=== PATIENT | male | born 2005 | race Caucasian/White ===

== ENCOUNTER 2025-03-24 13:51 | Observation (INO) | payer OTHER, SELFPAY ==
[2025-03-24] VITALS (13 sets, daily range): BP systolic 117–146; BP diastolic 63–91; PULSE 76–101; RESP 16; TEMP 36.3–36.9; O2SAT 97–100; BMI 24.8; BMI 25.0
--- NOTE | 2025-03-24 14:08 | EX.ED.DYSGE1 ---
HPI History of Present Illness Chief Complaint: Abd Pain PFSH PFSH Medical History no medical history Home Medications ?Medication ?Instructions ?Recorded ?Last Taken ?Type NK 03/24/25 Unknown History Allergy/AdvReac Type Severity Reaction Status Date / Time bacitracin (From Triple Allergy Intermediate Rash Verified 03/24/25 13:52 Antibiotic) neomycin (From Triple Allergy Intermediate Rash Verified 03/24/25 13:52 Antibiotic) polymyxin B (From Triple Allergy Intermediate Rash Verified 03/24/25 13:52 Antibiotic) Surgical History no surgical history Social History Smoking Status: Never smoker EXAM Physical Exam Const Vital Signs: 03/24/25 13:51 03/24/25 15:51 Temperature 97.3 F L 98.3 F Temperature Source Temporal Oral Pulse Rate 92 86 Respiratory Rate 16 16 Blood Pressure 137/91 H 131/77 H Blood Pressure Mean 106 95 Pulse Ox 100 100 Oxygen Delivery Method Room Air [facility] MDM Narrative Medical decision making narrative: HISTORY OF PRESENT ILLNESS: Chief complaint: [] [] REVIEW OF SYSTEMS: Pertinent positives: [] Pertinent negatives: [] PHYSICAL EXAM: Nursing triage notes reviewed, Vital signs reviewed Constitutional: please see mdm HENT: MMM Eyes: Pupils equal round and reactive to light, Extraocular muscles intact Neck: No stridor, no JVD, full neck ROM Lungs: Clear to auscultation, No wheezing or rales. No increased work of breathing, no conversational dyspnea, no accessory muscle use, no nasal flaring. No respiratory distress noted Heart: Regular rate and rhythm, No murmurs, No rubs and No gallops, 2+ distal pulses (radial, femoral, posterior tibial) in all extremities Abdomen: Soft, there is no tenderness, rigidity, rebound or guarding, no obvious peritoneal signs, no palpable pulsatile abdominal masses, no auscultated abdominal bruit : No CVAT Extremities: No edema Neuro: No new focal neurological deficits, cranial nerves II through XII intact, 5/5 strength in all present extremities. Intact sensation to light touch in all present extremities, 2+ reflexes bilateral patella tendons. Skin: No rash or lesions noted MEDICAL DECISION MAKING: Chief Complaint: please see HPI External records reviewed: No prior imaging studies Factors affecting care: none Social determinants of health: none History obtained from others: Parents Consults: General Surgery (Dr. Osman)?discussed he will evaluate the patient in the ED determine neck steps. MDM Narrative: Patient was initially hemodynamically stable, afebrile and nontoxic-appearing. Exam right lower quadrant TTP. No obvious peritoneal signs however. I considered the following differential diagnosis: AAA, small bowel obstruction, abdominal perforation, appendicitis, pancreatitis, hepatobiliary pathology (acute cholecystitis), mesenteric ischemia, pathology (ie nephrolithiasis, pyelonephritis). I obtained a broad lab and imaging workup to further determine if the patient was suffering from a life-threatening etiology. Initially resuscitated patient 1 L normal saline, gave 4 mg IV Zofran as well as 15 mg of IV Toradol ALL IMAGES (IF OBTAINED) HAVE BEEN PERSONALLY REVIEWED AND INTERPRETED BY MYSELF. CT scan of the abdomen pelvis was read and reviewed personally by myself showed evidence of small appendicolith as well as inflamed appendix consistent with acute appendicitis. Radiologist agrees to my interpretation. CBC with leukocytosis suggestive of systemic inflammation, no anemia or thrombocytopenia CMP without evidence of acute kidney injury, significant electrolyte abnormality, anion gap to suggest end organ hypo-perfusion, no evidence of metabolic acidosis with a normal bicarbonate, no evidence of hepatobiliary obstructive pathology. Given concern for acute appendicitis gave Zosyn. Kept patient n.p.o. and consulted general surgery. Awaiting general surgery's final recommendations. General surgery recommended admission to floor as he has another case that he needs to emergently operate on. Patient is admitted in stable condition. The patient and/or family, caregivers express understanding. The patient and/or family, caregivers agrees with the plan. Shared decision making: I will have a discussion with the patient and or visitors regarding risk/benefits of further testing or admission. They will be made aware of of the risk/benefits inherent in this decision they will be given the opportunity to voice understanding. Total critical care time today provided was at least 35 minutes. This excludes separately billable procedures. Critical care time (if documented) is secondary to the patient having high probability of clinically significant/life threatening deterioration in the patient's condition which required my urgent intervention. Impression: 1. Acute abdominal pain 2. Acute appendicitis Dispo: Admit to the OR versus surgical floor pending Dr. Osman final recommendations. Signed out to p.m. physician pending general surgery's final recs. This note was generated with [employer] dictation software. It may contain incorrect words, spelling, and punctuation that were not noted in review of the chart prior to signing. Lab Data Labs: Laboratory Results - last 24 hr 03/24/25 03/24/25 14:38 15:35 WBC 16.2 H RBC 5.42 Hgb 15.8 Hct 45.8 MCV 84.5 MCH 29.2 MCHC 34.5 RDW Std Deviation 37.5 RDW Coeff of Ruben 12.4 Plt Count 184 MPV 10.2 Immature Gran % (Auto) 0.400 Neut % (Auto) 91.1 H Lymph % (Auto) 3.4 L [place] % (Auto) 4.8 Eos % (Auto) 0.1 Baso % (Auto) 0.2 Absolute Neuts (auto) 14.7 H Absolute Lymphs (auto) 0.55 L Nucleated RBC % 0 Sodium 137 Potassium 3.3 Chloride 100 Carbon Dioxide 23.6 Anion Gap 14 BUN 21 H Creatinine 1.01 Estim Creat Clear Calc 119.46 Est GFR (MDRD) Non-Af 109 BUN/Creatinine Ratio 20.5 H Glucose 98 Calcium 9.5 Total Bilirubin 1.00 AST 27 ALT 32 Alkaline Phosphatase 85 Total Protein 7.3 Albumin 4.7 Globulin 2.6 Albumin/Globulin Ratio 1.8 Urine Color Straw Urine Clarity Clear Urine pH 6.5 Ur Specific [place] 1.010 Urine Protein 15 H Urine Glucose (UA) Normal Urine Ketones 150 A* Urine Occult Blood Negative Urine Nitrite Negative Urine Bilirubin Negative Urine Urobilinogen Normal Ur Leukocyte Esterase Negative Radiography Diagnostic Testing: Clinical Impression(s) from Imaging Studies Abdomen/Pelvis CT 03/24/25 14:09 IMPRESSION: Acute uncomplicated appendicitis. The findings and impression were called directly to Dr. Littlejohn at 3:22 p.m. Reading Location: [id number] Discharge Plan Triage Chief Complaint: Abd Pain ED Provider: Thee Littlejohn Dx/Rx/DC Orders Prescriptions: No Action NK Primary Care Provider: Care Physician,No Primary Referrals: Care Physician,No Primary [Primary Care Provider] - Print Language: Faroese
--- NOTE | 2025-03-24 14:09 | CT_ITS ---
PROCEDURE: ABDOMEN/PELVIS W IV CONT ONLY 03/24/2025 REASON FOR EXAM: RIGHT LOWER QUAD ABDOMINAL PAIN, RULE OUT APPENDIC TECHNIQUE: ABDOMEN/PELVIS W IV CONT ONLY Coronal and Sagittal reconstruction series were provided. CONTRAST: Isovue 370 VOLUME: 100 mL One or more dose reduction techniques were used (e.g., Automated exposure control, adjustment of the mA and/or kV according to patient size, use of iterative reconstruction technique. RADIATION DOSE SUMMARY: CTDlvol: 22 mGy DLP: 667 mGycm COMPARISON: None FINDINGS: Lung bases: Clear Liver: Normal Gallbladder: Normal Spleen: Normal Pancreas: Normal Adrenals: Normal Kidneys: Normal Bladder: Normal Reproductive Organs: Normal Bowel: Stomach, small bowel appear normal. Colon appears normal. Appendix: Mild distention, enhancement and periappendiceal stranding. This appears uncomplicated. Lymph nodes: None appear enlarged. Vasculature: Normal Peritoneum / Retroperitoneum: No free air, free fluid or mass. Bones: Normal CT/Abdomen/Pelvis W IV Cont ONLY IMPRESSION: Acute uncomplicated appendicitis. The findings and impression were called directly to Dr. Littlejohn at 3:22 p.m. Reading Location: [id number]
[2025-03-24] MEDS: 0.9% Normal Saline (1000mL) 1,000 ML 999 ML IV (14:31)
[2025-03-24 14:50] LABS: Hematocrit 45.8 % (40-54); Hemoglobin 15.8 g/dL (13.0-16.5); Immature Granulocytes Count 0.070 X10^3/uL (0.0-0.0); Mean Corp Hgb Conc 34.5 g/dL (32-36); Mean Corpuscular Volume 84.5 fL (80-94); Mean Platelet Vol. 10.2 fl (6.2-12.0); NRBC Flagged by Analyzer 0 % (0-5); POSITIVE DIFFERENTIAL YES; Platelet Count 184 K/mm3 (150-450); RBC Distribution Width CV 12.4 % (11.6-14.6); RBC Distribution Width SD 37.5 fl (35.1-43.9); Red Blood Count 5.42 M/mm3 (4.6-6.2); White Blood Count 16.2 K/mm3 (4.4-11.0)
[2025-03-24 15:16] LABS: AST(SGOT) 27 U/L (<=37); Alanine Aminotransfer ALT/SGPT 32 U/L (<=46); Albumin, Serum 4.7 g/dL (3.5-5.0); Alkaline Phosphatase 85 U/L (40-129); Anion Gap 14 (5-15); BUN 21 mg/dL (4-19); BUN/Creat Ratio 20.5 RATIO (10-20); Calcium,Total 9.5 mg/dL (7.6-11.0); Carbon Dioxide 23.6 mmol/L (21.0-32.0); Chloride 100 mmol/L (98-108); Estimated Creatinine Clearance 119.46 ml/min (50-250); Globulin 2.6 g/dL (2.2-4.2); Glucose 98 mg/dL (70-99); Potassium 3.3 mmol/L (3.3-5.1)
[2025-03-24 15:40] LABS: Mucous, Urine 0 SEEN /hpf (<or=2+)
[2025-03-24 15:45] LABS: Color, Urine Straw (Yellow); Glucose, Dipstick Normal (Normal); Leukocyte Esterase-Dipstick Negative /ul (Negative); Nitrite-Dipstick Negative (Negative); Occult Blood-Urine Negative /ul (Negative); Protein-Dipstick 15 mg/dl (Negative); Specific Gravity, Urine 1.010 (1.002-1.030); Urine Bilirubin Dipstick Negative (Negative)
[2025-03-24 15:49] LABS: Ketone-Dipstick 150 mg/dl (Negative)
[2025-03-24] MEDS: Piperacil/Tazobactam 4.5 GM in 0.9% Normal Saline (100mL MB+) 100 ML IV (15:49)
--- NOTE | 2025-03-24 16:25 | PCM.HP.STD ---
HPI - General General Date of Admission: 03/24/25 Date of Service: 03/24/25 Chief Complaint: Right lower quadrant pain HPI Narrative CAROL DHILLON, is a 19 M who presents with a 1 day history of right lower quadrant pain. Patient states the pain started this morning. he noted the pain location was umbilical and radiated to the right lower quadrant. He denies any bowel habits changes. He notes nausea associated with the pain. He notes lack of appetite. He states he may have had a similar episode, less severe, approximately 1 month ago. He denies any cardiac or pulmonary history. He denies any previous surgeries. Patient works on the [employer]. CT scan of the ab/pel obtained and demonstrated acute uncomplicated appendicitis with an appendicolith. WBC elevated at 16.2 with a left shift. [facility] Medical History no medical history Home Medications ?Medication ?Instructions ?Recorded ?Last Taken ?Type NK 03/24/25 Unknown History Allergy/AdvReac Type Severity Reaction Status Date / Time bacitracin (From Triple Allergy Intermediate Rash Verified 03/24/25 13:52 Antibiotic) neomycin (From Triple Allergy Intermediate Rash Verified 03/24/25 13:52 Antibiotic) polymyxin B (From Triple Allergy Intermediate Rash Verified 03/24/25 13:52 Antibiotic) Surgical History no surgical history Social History Smoking Status: Never smoker ROS Constitutional Constitutional: Reports systems reviewed and no addt'l complaints, except as documented Eyes Eyes: Reports systems reviewed and no addt'l complaints, except as documented ENT HEENT: Reports systems reviewed and no addt'l complaints, except as documented Cardiovascular Cardiovascular: Reports systems reviewed and no addt'l complaints, except as documented Respiratory/Chest Respiratory/Chest: Reports systems reviewed and no addt'l complaints, except as documented Gastrointestinal Gastrointestinal: Reports systems reviewed and no addt'l complaints, except as documented Genitourinary Genitourinary: Reports systems reviewed and no addt'l complaints, except as documented Musculoskeletal Musculoskeletal: Reports systems reviewed and no addt'l complaints, except as documented Integumentary Integumentary: Reports systems reviewed and no addt'l complaints, except as documented Neurologic Neurologic: Reports systems reviewed and no addt'l complaints, except as documented Psychiatric Psychiatric: Reports systems reviewed and no addt'l complaints, except as documented Endocrine Endocrinology: Reports systems reviewed and no addt'l complaints, except as documented Hematologic/Lymphatic Hematologic/Lymphatic: Reports systems reviewed and no addt'l complaints, except as documented Allergic/Immunologic Allergic/Immunologic: Reports systems reviewed and no addt'l complaints, except as documented Vital Signs Vital Signs Vital Signs: 03/24/25 13:51 03/24/25 15:51 Temperature 97.3 F L 98.3 F Temperature Source Temporal Oral Pulse Rate 92 86 Respiratory Rate 16 16 Blood Pressure 137/91 H 131/77 H Blood Pressure Mean 106 95 Pulse Ox 100 100 Oxygen Delivery Method Room Air Weight Weight: 173 lb 1.6 oz Body Mass Index (BMI) 24.8 Physical Exam Const alert, oriented x3 and no apparent distress HEENT normocephalic and head/scalp atraumatic Eyes PERRL Neck full ROM Resp normal respiratory effort and clear to auscultation bilaterally Cardio regular rate and regular rhythm GI GI Narrative: Abdomen- soft, nondistended. Tenderness with palpation of the right lower quadrant, positive Mejia's sign and psoas sign. no CVA tenderness Back/Spine no CVA tenderness Extremity normal to inspection Skin no rashes or lesions noted Neuro oriented x3, no focal motor deficits and no sensory deficits noted Psych mental status grossly normal and thought process normal Results Lab / Micro Data 03/24/25 14:38 03/24/25 14:38 Labs: Laboratory Results - last 24 hr 03/24/25 14:38: WBC 16.2 H, RBC 5.42, Hgb 15.8, Hct 45.8, MCV 84.5, MCH 29.2, MCHC 34.5, RDW Std Deviation 37.5, RDW Coeff of Ruben 12.4, Plt Count 184, MPV 10.2, Immature Gran % (Auto) 0.400, Neut % (Auto) 91.1 H, Lymph % (Auto) 3.4 L, [place] % (Auto) 4.8, Eos % (Auto) 0.1, Baso % (Auto) 0.2, Absolute Neuts (auto) 14.7 H, Absolute Lymphs (auto) 0.55 L, Nucleated RBC % 0, Sodium 137, Potassium 3.3, Chloride 100, Carbon Dioxide 23.6, Anion Gap 14, BUN 21 H, Creatinine 1.01, Estim Creat Clear Calc 119.46, Est GFR (MDRD) Non-Af 109, BUN/Creatinine Ratio 20.5 H, Glucose 98, Calcium 9.5, Total Bilirubin 1.00, AST 27, ALT 32, Alkaline Phosphatase 85, Total Protein 7.3, Albumin 4.7, Globulin 2.6, Albumin/Globulin Ratio 1.8 03/24/25 15:35: Urine Color Straw, Urine Clarity Clear, Urine pH 6.5, Ur Specific [place] 1.010, Urine Protein 15 H, Urine Glucose (UA) Normal, Urine Ketones 150 A*, Urine Occult Blood Negative, Urine Nitrite Negative, Urine Bilirubin Negative, Urine Urobilinogen Normal, Ur Leukocyte Esterase Negative Imaging Radiology Impression Abdomen/Pelvis CT 03/24/25 14:09 IMPRESSION: Acute uncomplicated appendicitis. The findings and impression were called directly to Dr. Littlejohn at 3:22 p.m. Reading Location: [facility] Assessment & Plan Assessment/Plan (1) Acute appendicitis: QUALIFIERS: Acute appendicitis type: with localized peritonitis Appendicitis gangrene presence: without gangrene Appendicitis perforation presence: without perforation Appendicitis abscess presence: without abscess Qualified Code(s): K35.30 - Acute appendicitis with localized peritonitis, without perforation or gangrene PLAN: I am seeing this patient in conjunction with Dr. Osman. He has independently evaluated this patient. Patient is a 19 y/o M who presents with a 1 day history of right lower quadrant abdominal pain. CT scan of ab/pel confirmed acute appendicitis. Dr. Osman will plan to perform a laparoscopic appendectomy. Procedure details, risks and benefits have been explained. Patient verbally understands and agrees with the plan. Patient will be admitted for observation following the procedure. Thank you for allowing us to participate in this patient's care. Charges/Coding Visit Charges OBSV E&M: 14917 Observ/hosp same date L2
[2025-03-24 16:57] LABS: Red Blood Cells-Urine 0-5 SEEN /hpf (0-5); Squamous Epithelial Cells - UA 0-5 SEEN /hpf (0-5)
--- NOTE | 2025-03-24 17:15 | APP_PTH ---
PATIENT: CAROL DHILLON LOC: MS3 U#:[id number] AGE/SX: 19/M ROOM: MS311 RE03/24/[address]: Chio Caldera PA-C : 2005 BED: 1 DIS: 03/25/2025 SPEC #: [id number] RECD: 03/25/25 09:07 STATUS: LETICIA REQ #: [id number] CYRUS: 03/24/25 17:[address]: Chio Caldera DEPT: SURGICAL PATHOLOGY RECD BY: Montrell Mayes ENTERED: 03/25/25 10:41 SP TYPE: APPENDIX OTHR DR: MD Dr. Thee Pelletier, DO No Primary Care Phys Tissues: A - Appendix, NOS Procedures: Surgery Specimen Level III HEADER OPERATION: Laparoscopic appendectomy PRE-OP DIAGNOSIS: Acute appendicitis TISSUE SUBMITTED: A- Appendix MICROSCOPIC DIAGNOSIS A. Appendix, appendectomy: - Acute appendicitis. MICROSCOPIC DESCRIPTION Slides are reviewed. GROSS DESCRIPTION A. Received in formalin labeled with the patient's name and date of . Designated as appendix is a 6.6 x 0.9 cm pace-pink to arias appendix with up to 1.9 cm of attached mesoappendix. There is focal fibrinous exudate on the serosal surface, spanning to the underlying mesoappendix. The proximal margin is inked black and shaved. Sectioning reveals pace-pink, focally congested mucosa with slightly hemorrhagic luminal contents. 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 UT 03/25/2025 CPT:40507
[2025-03-24] MEDS: 0.9% Normal Saline (1000mL) 1,000 ML 100 ML IV ×2 (18:20→21:53)
--- NOTE | 2025-03-24 18:27 | PRE.ANES_ITS ---
ASA Classification* ASA Classification ASA Classification: 1 and E Assessment & Plan Anesthesia* Anesthesia Assessment Anesthesia Assessment: Discussed sedation and/or anesthesia options, risks, benefits, and alternatives with patient/parents/legal guardian/POA. Questions invited. The patient/parents/legal guardian/POA seems to understand and agrees to proceed with anesthesia plan. Reviewed the physical assessment, medical history, allergy history and patient home medications list prior to surgery/procedure/anesthetic and documented any changes. Performed airway and anesthesia risk assessments. Anesthesia Type Anesthesia Type: General History Source History Obtained from:: Patient and Chart Anesthesia Focused Assessment* Temperature: 98.2 F Pulse Rate: 82 Blood Pressure: 117/64 Respiratory Rate: 16 Pulse Ox: 100 Oxygen Delivery Method: Room Air Airway Assessment Mouth opens: >3 cm Mallampati Score: II Teeth Condition: Intact Neck Range of motion (ROM): Full ROM Labs Anesthesia Preop lab: CBC WBC 16.2 K/mm3 (4.4-11.0) H 03/24/25 14:38 5 RBC 5.42 M/mm3 (4.6-6.2) 03/24/25 14:38 03/24/25 Hgb 15.8 g/dL (13.0-16.5) 03/24/25 14:38 03/24/25 Hct 45.8 % (40-54) 03/24/25 14:38 03/24/25 Plt Count 184 K/mm3 (150-450) 03/24/25 14:38 03/24/25 CHEMISTRY Potassium 3.3 mmol/L (3.3-5.1) 03/24/25 14:38 03/24/25 Sodium 137 mmol/L (133-145) 03/24/25 14:38 03/24/25 BUN 21 mg/dL (4-19) H 03/24/25 14:38 03/24/25 Creatinine 1.01 mg/dL (0.70-1.20) 03/24/25 14:38 03/24/25 Glucose 98 mg/dL (70-99) 03/24/25 14:38 03/24/25 COAG Pre-Assessment Diagnosis/Proposed Procedure Planned Operative Procedure(s): Lap appendectomy Anesthesia History 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 When Was Last Pacemaker Check QUESTION #4 FULL TEXT: You/Your Family Experience fever (hyperthermia) with Anesthesia Last Oral Intake Last Oral intake: Last Oral Intake NPO since Meds taken in AM with sips of water? Meds patient instructed to take am of surgery PONV PONV - diesel engine operator: PONV - diesel engine operator Female HX of Motion Sickness HX of N/V After Surgery Non-Smoker Duration of Surgery greater than 60 minutes Number of Risk Factors PONV Score Height & Weight Height & Weight: Anesthesia: Height & Weight Height 5 ft 10 in 03/24/25 13:51 Weight: 78.517 kg 03/24/25 13:51 Body Mass Index (BMI) 24.8 03/24/25 13:51 Respiratory Assessment Respiratory Assessment - diesel engine operator: Respiratory Tract Infection Hx - diesel engine operator Hx Respiratory Tract Infection STOP Sleep Apnea STOP Sleep Apnea - diesel engine operator: STOP Sleep Apnea - diesel engine operator Hx Hypertension Hx Sleep Apnea CPAP BIPAP Do you snore loudly (louder than talking or can be heard Do you often feel tired/ fatigued/ sleepy during daytime? Has anyone observed you stop breathing during sleep? STOP Results QUESTION #5 FULL TEXT : Do you snore loudly (louder than talking or can be heard through closed doors)? Tobacco Use History Tobacco Use History - diesel engine operator: Tobacco Use History - diesel engine operator Tobacco Use Smoking Status Never smoker 03/24/25 14:36 Hx Tobacco Use Years Smoking Packs Smoked per Day Smoking Cessation Date was within the last 15 years Hx Smoking Cessation Date Hx Smoking Cessation Counseling Hematologic Medial History Hematologic Hx - diesel engine operator: Hematologic Medical Hx - neurobiologist Hx of Blood Transfusion Hx of Transfusion in last 3 Months Date of Last Transfusion (if within last 3 months) Ever experience any problems with transfusion(s)? Specify any problems Hx of Preganancy in last 3 Months Nurse Filling Out Transfusion & Questions: Date: Time: Patient unable to answer at this time (ie. confused, unrespo /Reproduction History /Reproductive History - diesel engine operator: /Reproductive Hx- diesel engine operator Hx Now Gestational Age (in weeks): EDC: Hx Hx Para Hx Section SAB Active Medications Active Medications: Current Medications Generic Name Dose Route Start Last Admin Trade Name Freq PRN Reason Stop Dose Admin Acetaminophen 650 mg 03/24/25 16:50 Acetaminophen 325 Mg Tablet PO Q6H PRN PRN Pain 1-10 Or Fever >100.7 Sodium Chloride 1,000 mls @ 100 mls/hr 03/24/25 16:50 03/24/25 18:20 IV 100 mls/hr .Q10H DEBBIE Administration Piperacillin Sod/Tazobactam 50 mls @ 12.5 mls/hr 03/24/25 22:00 Sod 3.375 gm/ Sodium Chloride IV Q8 DEBBIE Sodium Chloride 250 mls @ 15 mls/hr 03/24/25 16:52 IV .[id number] PRN Saline Flush Morphine Sulfate 2 - 4 mg 03/24/25 16:50 Morphine 2 Mg/Ml Syringe IV Q3H PRN PRN Pain Score 6-10 Ondansetron HCl 4 mg 03/24/25 16:50 Ondansetron 4 Mg/2 Ml Vial IV Q8H PRN PRN NAUSEA/VOMITING Oxycodone HCl 5 mg 03/24/25 16:50 Oxycodone 5 Mg Tablet PO Q4H PRN PRN Pain Score 4-10 Sodium Chloride 10 - 40 ml 03/24/25 16:52 0.9% Saline Lock 10 Ml Syringe IV UD PRN SALINE FLUSH PFSH Medical History no medical history Home Medications ?Medication ?Instructions ?Recorded ?Last Taken ?Type NK 03/24/25 Unknown History Allergy/AdvReac Type Severity Reaction Status Date / Time bacitracin (From Triple Allergy Intermediate Rash Verified 03/24/25 13:52 Antibiotic) neomycin (From Triple Allergy Intermediate Rash Verified 03/24/25 13:52 Antibiotic) polymyxin B (From Triple Allergy Intermediate Rash Verified 03/24/25 13:52 Antibiotic) Surgical History no surgical history Social History Smoking Status: Never smoker Review of Systems (Anesthesia) ROS Narrative System reviewed and no additional complaints, except as documented.
[2025-03-24] MEDS: 0.9% Normal Saline (1000mL) 1,000 ML 1000 ML IV (19:09)
[2025-03-24] MEDS: Midazolam 2 MG/2 ML Syringe IV (19:16)
[2025-03-24] MEDS: fentaNYL 100 MCG/2 ML Ampul IV (19:16)
[2025-03-24] MEDS: Lidocaine 1% (5 ml sdv) 5 ML Vial IV (19:17)
--- NOTE | 2025-03-24 20:13 | PCM.OPRPT ---
Procedures Digestive 40xxx-49xxx: [id number] Laparoscopy appendectomy Operative Report (Standard) Operative Information Date of Procedure: 03/24/25 Pre-Operative Diagnosis: Acute appendicitis Post-Operative Diagnosis: Acute, uncomplicated appendicitis Surgery/Procedure Performed: Laparoscopic appendectomy prepress proofer: Yes Flame Hardening Machine Operator: Oliverio Stone Tasks completed by waiter/waitress first class: Opening Additional electrician assistant?: No Type of Anesthesia: General/Supplemental RN Documented Start/Stop Times: Operation Date: 03/24/25 17:15 Case Time Into Pre-Op 03/24/25 18:09 Anesthesia Start 03/24/25 19:03 Into Room 03/24/25 19:03 Procedure Start 03/24/25 19:27 Procedure End 03/24/25 20:11 Anesthesia End 03/24/25 20:16 Out of Room 03/24/25 20:16 Into Recovery 03/24/25 20:24 Procedure Start Time: 19:27 Procedure Stop Time: 20:11 Select all DRAINS/GRAFTS/IMPLANTS that apply: None Estimated Blood Loss: 15 Specimen collected: Yes Description of specimen(s) removed: Appendix Description of surgery: After appropriate identification in the preoperative holding area, the patient was brought to the operating room and placed supine on the operating room table. Antibiotics had been preoperatively administered by emergency medicine. Patient was then induced with general endotracheal anesthetic. The abdomen was prepped and draped in usual sterile fashion. Formal timeout was conducted to confirm both the patient and the procedure. A supraumbilical incision was made and carried down to the level of the fascia which was sharply opened. After opening the peritoneum in like fashion a finger sweep was made to confirm position, and a balloon trocar was placed and pneumoperitoneum was established to 15 mmHg. Patient was positioned in Trendelenburg with the left side down. Two additional 5 mm trocars were placed in the left lower quadrant and suprapubic positions. The peritoneum was inspected and there are no signs of inadvertent injury from this Martinez entry. The appendix was visualized with mild inflammation. Using blunt laparoscopic dissection, a window was made in the mesoappendix adjacent to the appendiceal base. The mesoappendix was divided with application of a laparoscopic harmonic. Then the base of the appendix was sealed and amputated with the use of an Endo GORDON stapler. The appendix was placed in an Endo Catch bag. The staple line was inspected for hemostasis and there was some slight oozing so direct pressure was applied through a Ray-Sharmaine. A slight ooze persisted so I elected to place a small swatch of fibrillar hemostatic agent over the site. After application of this hemostatic agent the patient remained white in color indicating hemostasis. After hemostasis was confirmed the appendix, previously placed in an Endo Catch bag, was removed from the umbilical port site. Pneumoperitoneum was then evacuated and the supraumbilical port site fascia was closed with #1 Vicryl in a [id number] fashion. The port sites were infiltrated with [number] mL local anesthetic. The skin of each port site was closed with 4-0 Monocryl in a subcuticular fashion. Steri-Strips and OpSite dressings were applied. Patient tolerated procedure well without any apparent complications. They were awoken from general anesthetic without issue and transferred to post anesthesia care unit for ongoing recovery. Surgical Findings: ? Acutely inflamed appendix with inflammatory change noted primarily in the mid body of the appendix and extending distally ? Adherent inflammatory exudate but no evidence of perforation Complications Complications: No Admit VTE Documentation VTE Mechan Device Prophylaxis: SCD's
--- NOTE | 2025-03-24 20:24 | PCM.POST.ANE ---
Anesthesia: Postop Eval I Current Vital Signs Temperature: 97.6 F Pulse Rate: 101 Blood Pressure: 136/71 Respiratory Rate: 16 Pulse Ox: 100 Assessment Airway patent: Yes Spontaneous unlabored respirations: Yes nausea: No Vomiting: No Anesthesia Complication: No Fluid Hydration Crystalloid volume administer (ml): 1,000 Total IV fluid infused: 1,000 Progress Note Anesthesia document: Postop Eval 1 completed: Yes
--- NOTE | 2025-03-24 20:27 | PCM.POSTANE2 ---
Anesthesia Postop Eval I Sum Postop Eval Completion status Anesthesia document: Postop Eval 1 completed: Yes Anesthesia Postop Eval I Summary Anesthesia Postop Eval I Summary: Anesthesia Postop Eval I: Assessment Summary Airway patent Yes 03/24/25 20:24 Spontaneous unlabored Yes 03/24/25 20:24 respirations Mental status nausea No 03/24/25 20:24 Vomiting No 03/24/25 20:24 Anesthesia Postop Eval I: Fluid Summary Crystalloid volume administer 1,000 03/24/25 20:24 (ml) Colloids volume administered ( ml) Blood Product volume administered (ml) Total IV fluid infused 1,000 03/24/25 20:24 Anesthesia Postop Eval I: Summary Notes Anesthesia Complication No 03/24/25 20:24 Anesthesia Complication Comment: Post-operative progress note Anesthesia: Postop Eval II Evaluation Mental status: Awake and Calm Pain Level: 1 nausea: No Vomiting: No
[2025-03-24] MEDS: Piperacil/Tazobactam 3.375 GM in 0.9% Normal Saline (50mL MB+) 50 ML IV (21:47)
[2025-03-25 01:04] VITALS: BP 145/73; PULSE 73; RESP 15; TEMP 36.6; O2SAT 97
[2025-03-25 05:20] VITALS: BP 142/59; PULSE 86; RESP 16; TEMP 36.5; O2SAT 97
[2025-03-25] MEDS: Piperacil/Tazobactam 3.375 GM in 0.9% Normal Saline (50mL MB+) 50 ML IV (05:28)
[2025-03-25 06:51] LABS: Hematocrit 43.8 % (40-54); Hemoglobin 15.2 g/dL (13.0-16.5); Immature Granulocytes Count 0.030 X10^3/uL (0.0-0.0); Mean Corp Hgb Conc 34.7 g/dL (32-36); Mean Corpuscular Volume 85.9 fL (80-94); Mean Platelet Vol. 10.6 fl (6.2-12.0); NRBC Flagged by Analyzer 0 % (0-5); Platelet Count 178 K/mm3 (150-450); RBC Distribution Width CV 12.3 % (11.6-14.6); RBC Distribution Width SD 38.7 fl (35.1-43.9); Red Blood Count 5.10 M/mm3 (4.6-6.2); White Blood Count 9.6 K/mm3 (4.4-11.0)
[2025-03-25 08:03] VITALS: BP 127/71; PULSE 78; RESP 18; TEMP 36.4; O2SAT 97
[2025-03-25 08:05] VITALS: O2SAT 97
--- NOTE | 2025-03-25 08:31 | PCM.PN.SRG ---
Subjective Subjective Patient evaluated resting comfortably in bed. He notes minimal amount of tenderness at the incision sites. He denies any nausea, vomiting, fever. Objective Data Objective Data Vital Signs: Vital Signs Temp Pulse Resp BP Pulse Ox O2 Del Method 97.6 F L 78 18 127/71 H 97 Room Air 03/25/25 08:03 03/25/25 08:03 03/25/25 08:03 03/25/25 08:03 03/25/25 08:05 03/25/25 08:05 Oxygen Delivery Method Room Air Weight: 174 lb 9.6 oz Body Mass Index (BMI) 25.0 Intake & Output: Intake and Output for Last 24 Hours 03/23/25 03/24/25 03/25/25 23:59 23:59 23:59 Intake Total 1655 / 1655 450 / 450 Output Total 5 / 5 Balance 1650 / 1650 450 / 450 Lab / Micro Data 03/25/25 05:55 03/24/25 14:38 Labs: Laboratory Results - last 24 hr 03/24/25 14:38: WBC 16.2 H, RBC 5.42, Hgb 15.8, Hct 45.8, MCV 84.5, MCH 29.2, MCHC 34.5, RDW Std Deviation 37.5, RDW Coeff of Ruben 12.4, Plt Count 184, MPV 10.2, Immature Gran % (Auto) 0.400, Neut % (Auto) 91.1 H, Lymph % (Auto) 3.4 L, [place] % (Auto) 4.8, Eos % (Auto) 0.1, Baso % (Auto) 0.2, Absolute Neuts (auto) 14.7 H, Absolute Lymphs (auto) 0.55 L, Nucleated RBC % 0, Sodium 137, Potassium 3.3, Chloride 100, Carbon Dioxide 23.6, Anion Gap 14, BUN 21 H, Creatinine 1.01, Estim Creat Clear Calc 119.46, Est GFR (MDRD) Non-Af 109, BUN/Creatinine Ratio 20.5 H, Glucose 98, Calcium 9.5, Total Bilirubin 1.00, AST 27, ALT 32, Alkaline Phosphatase 85, Total Protein 7.3, Albumin 4.7, Globulin 2.6, Albumin/Globulin Ratio 1.8 03/24/25 15:35: Urine Color Straw, Urine Clarity Clear, Urine pH 6.5, Ur Specific Moose 1.010, Urine Protein 15 H, Urine Glucose (UA) Normal, Urine Ketones 150 A*, Urine Occult Blood Negative, Urine Nitrite Negative, Urine Bilirubin Negative, Urine Urobilinogen Normal, Ur Leukocyte Esterase Negative, Urine RBC 0-5 SEEN, Urine WBC 0-5 SEEN, Ur Squamous Epith Cells 0-5 SEEN, Urine Bacteria 0 SEEN, Urine Mucus 0 SEEN 03/25/25 05:55: WBC 9.6, RBC 5.10, Hgb 15.2, Hct 43.8, MCV 85.9, MCH 29.8, MCHC 34.7, RDW Std Deviation 38.7, RDW Coeff of Ruben 12.3, Plt Count 178, MPV 10.6, Immature Gran % (Auto) 0.300, Neut % (Auto) 90.2 H, Lymph % (Auto) 6.4 L, [place] % (Auto) 3.0, Eos % (Auto) 0.0, Baso % (Auto) 0.1, Absolute Neuts (auto) 8.7 H, Absolute Lymphs (auto) 0.62 L, Nucleated RBC % 0 Radiography Diagnostic Testing: Radiology Impression Abdomen/Pelvis CT 03/24/25 14:09 IMPRESSION: Acute uncomplicated appendicitis. The findings and impression were called directly to Dr. Littlejohn at 3:22 p.m. Reading Location: [facility] Physical Exam GI GI Narrative: Abdomen- soft, minimal tenderness. Incisions c/d/i. No erythema or infection noted. Assessment & Plan Assessment/Plan (1) Acute appendicitis: QUALIFIERS: Acute appendicitis type: with localized peritonitis Appendicitis gangrene presence: without gangrene Appendicitis perforation presence: without perforation Appendicitis abscess presence: without abscess Qualified Code(s): K35.30 - Acute appendicitis with localized peritonitis, without perforation or gangrene PLAN: I am following this patient in conjunction with Dr. Osman. He has independently evaluated this patient. Labs reviewed Increase diet to regular. If patient tolerates, he will be ready for discharge Pain is well controlled Ready for discharge Charges/Coding Visit Charges Inpatient E&M: 80968 Subs Hosp L1 (post-op; no charge)
--- NOTE | 2025-03-25 08:44 | DCINST_ITS ---
Discharge Instructions DC O2, CPAP, BIPAP needs Home O2 Discharge instructions: No Dressing / Incision Discharge Activity: May Not Drive (3-5 days or while taking narcotics) and May Shower (in 48 hours) Lifting Restrictions: No lifting greater than 15 pounds for 2 weeks Dressing / Incision Call your doctor if your incision/area has: Continuous Slow Oozing, Sudden Increased Bleeding, Increased Pain/ Swelling, Increased Redness, Foul Smelling Discharge and Swelling at the incision site Call your doctor if you observe: Fever of 101 or Higher Suture Line Care: Avoid Pulling/Pushing and Avoid Pinching/Bending Remove Dressing in: 2 days Cleanse incision/area with: Soap & Water Follow Up Care Please Follow Up With: Chio Caldera, PAAndry When: Please contact our office at [phone], option #2 for a 10 days follow- up Test Results: Test results from this visit will be discussed in further detail at your follow- up appointment, if applicable. Discharge Plan Admission Admit Date/Time: 03/24/25 16:20 Primary Reason for Your Visit: Acute appendicitis Attending Provider: Chio Caldera Primary Care Provider: Care Physician,No Primary Instructions Additional Instructions / Restrictions: Appendectomy Diet ? Start light with soups and soft bland foods. You may advance diet as tolerated. Activity ? You may drive in 3-5 days but not while taking narcotic pain medication. ? I encourage walking. You may go up steps, one at a time. ? Do not swim or use hot tubs for 2 weeks. ? For comfort, you may use warm compresses or ice as needed for 15-20 minutes at a time. Lifting ? You may lift up to 15 pounds for the first 2 weeks. Dressings/Incision ? You may shower OVER your plastic dressings ? Do NOT tub bathe for 1 week ? Leave plastic dressings on for 3 days. ? When plastic dressings are removed, you will find steri-strips. It is okay to continue showering with them in place, pat them dry. ? You may remove steri-strips after 1 week. We recommend getting them soaking wet for easier removal. Medications ? Anesthesia used during surgery and pain medications may cause constipation. I recommend initiating on the day of surgery a fiber supplement like, Metamucil, Citrucel, FiberCon, Benefiber, or a generic form of these medications. 1 heaping tablespoon in water daily. You may continue to utilize any bowel regimen or oral laxatives that you routinely take. ? As long as you are not intolerant to Tylenol, acetaminophen, ibuprofen, Motrin, Advil, Aleve, or similar medications, I would recommend transitioning to these [id number] medicines as soon as possible instead of continued use of narcotic pain medication. Follow up ? You should call [facility] soon after surgery, at [phone] option 2 to make a follow up appointment for 10 days after your surgery. Discharge Orders/Prescriptions Prescriptions: New acetaminophen 325 mg Tablet 650 mg PO Q6H PRN PRN (Reason: Pain 1-10 Or Fever >100.7) Qty: 0 0RF oxycodone 5 mg Tablet 5 mg PO Q4H PRN PRN (Reason: Pain Score 4-10) 3 Days Qty: 10 0RF Referrals / Follow Up: Care Physician,No Primary [Primary Care Provider] - Chio Caldera PA-C [Med Staff - [facility]] - 04/05/25 Disposition Disposition (needs filled in before D/C Order can be placed): Home, Self Care
== END 2025-03-25 12:15 | disposition home or self-care (01) ==
LOC: ED 16:15 → MS3 16:34
PROVIDERS: Admitting Provider Surgery; Emergency Provider Emergency Medicine; Referring Provider Emergency Medicine; Visit Provider Physician Assistant
PROC: 0DTJ4ZZ Resection of Appendix, Percutaneous Endoscopic Approach (ICD-10-PCS; CPT 44970; principal; 2025-03-24 16:55)
DX: K35.30 Acute appendicitis with localized peritonitis, without perforation or gangrene (principal)
CPT/HCPCS: 44970; 00840; 36415; 74177; 80053; 81001; 85025; 88304; 94668; 96361; 96365; 96366; 96375; 99221; 99283; Q9967; A4216; G0378; J2405